=== PATIENT | female | born 1955 | race Caucasian/White ===

== ENCOUNTER 2019-07-29 13:29 | Inpatient (IN) | payer OTHER ==
[~2019-07-29] VITALS: Ht 152.4 cm; Wt 70.3 kg
[~2019-07-29 13:29] MED LIST: ATOR20TA65 PO; DOCU-159 PO; ENOX30DI10 SQ; HEP30MU30 CATHETER; HYDR-3672 PO; HYDR-4011 PO; PANT40TA4 PO
[2019-07-29] MEDS ORDERED: morphine 4 MG/ML VIAL IV ONE (14:00)
[2019-07-29] MEDS ORDERED: ONDANSETRON 4 MG INJ IV ONE (14:00)
[2019-07-29] MEDS ORDERED: morphine 4 MG/ML VIAL IV STA (15:14)
[2019-07-29] MEDS ORDERED: ONDANSETRON 4 MG INJ IV PRN (17:30)
[2019-07-29] MEDS ORDERED: ACETAMINOPHEN 325 MG TAB PO PRN (17:30)
[2019-07-29] MEDS ORDERED: NA POLYST SULFON 15 GM/60 ML BTL PO ONE (19:00)
[2019-07-29] MEDS: morphine 4 MG/ML VIAL IV PRN (19:16)
[2019-07-29] MEDS ORDERED: hydrALAzine 20 MG INJ IV PRN (19:30)
[2019-07-29 20:20] VITALS: BP 173/74; PULSE 71; RESP 19
[2019-07-29 21:05] VITALS: Ht 152.4 cm; Wt 70.3 kg
[2019-07-29 23:57] VITALS: BP 139/63; PULSE 69; RESP 18
[2019-07-30] VITALS (18 sets, daily range): BP systolic 138–208; BP diastolic 61–99; PULSE 69–80; RESP 16–20
[2019-07-30] MEDS: morphine 4 MG/ML VIAL IV PRN ×2 (05:12→10:08)
[2019-07-30] MEDS: ONDANSETRON 4 MG INJ IV PRN ×3 (05:12→21:53)
[2019-07-30] MEDS: DEXTROSE 5%-0.45% NACL 1,000 ML IV SCH ×2 (10:59→21:55)
[2019-07-30] MEDS ORDERED: SODIUM CHLORIDE 0.9% 1L BAG IV PRN (11:30)
[2019-07-30] MEDS ORDERED: POLYMYXIN/BACITRACIN 1L IRRIG ONE (14:23)
[2019-07-30] MEDS ORDERED: PROPOFOL 20 ML ONE (15:18)
[2019-07-30] MEDS ORDERED: FENTAnyl 50 MCG/ML VIAL ONE (15:18)
[2019-07-30] MEDS ORDERED: LIDOCAINE 100 MG SYRINGE ONE (15:18)
[2019-07-30] MEDS ORDERED: ONDANSETRON 4 MG INJ ONE (15:27)
[2019-07-30] MEDS ORDERED: ROPIVACAINE 0.5 % 30 ML VIAL ONE (15:39)
[2019-07-30] MEDS ORDERED: NEOSTIGMINE 3 MG/3 ML SYRINGE ONE (15:58)
[2019-07-30] MEDS ORDERED: CEFAZOLIN 1 GM INJ ONE (15:58)
[2019-07-30] MEDS ORDERED: GLYCOPYRROLATE 0.4 MG INJ ONE (15:58)
[2019-07-30] MEDS ORDERED: DIPHENHYDRAMINE 50 MG INJ IV PRN (16:30)
[2019-07-30] MEDS ORDERED: HYDROmorphONE 1 MG/5 ML IV SYRINGE IV PRN ×3 (16:30)
[2019-07-30] MEDS ORDERED: MEPERIDINE 25 MG INJ IV PRN (16:30)
[2019-07-30] MEDS ORDERED: LABETALOL HCL 20MG INJ IV PRN (16:30)
[2019-07-30] MEDS ORDERED: FENTAnyl 50 MCG/ML VIAL IV PRN ×3 (16:30)
[2019-07-30] MEDS ORDERED: OXYCODONE/ACETAMINOPHEN (5/325) TAB PO PRN ×2 (16:30)
[2019-07-30] MEDS ORDERED: ALBUTEROL 0.083% (NEB) 2.5 MG/3 ML AMP HHN PRN (16:30)
[2019-07-30] MEDS ORDERED: IPRATROPIUM (NEB) 0.5 MG/2.5 ML AMP HHN PRN (16:30)
[2019-07-30] MEDS ORDERED: ONDANSETRON 4 MG INJ IV PRN (16:30)
[2019-07-30] MEDS ORDERED: EPHEDrine 25 MG/5 ML SYG IV PRN (16:30)
[2019-07-30] MEDS ORDERED: hydrALAzine 20 MG INJ IV PRN (16:30)
[2019-07-30] MEDS ORDERED: SOD CHLORIDE 0.9% 1,000 ML IV SCH (17:03)
[2019-07-30] MEDS ORDERED: MAGNESIUM HYDROXIDE 30ML CUP PO PRN (17:30)
[2019-07-30] MEDS ORDERED: BISACODYL 10 MG SUPP PR PRN (17:30)
[2019-07-30] MEDS ORDERED: SENNA/DOCUSATE NA (8.6MG/50MG) TAB PO PRN (17:30)
[2019-07-30] MEDS ORDERED: CEFAZOLIN 2 GM/50 ML (PMX) 50 ML IVPB SCH (17:30)
[2019-07-30] MEDS ORDERED: NA PHOSPHATE/BIPHOS 133 ML ENEMA PR PRN (17:30)
[2019-07-30] MEDS ORDERED: oxyCODONE 5 MG TAB PO PRN (17:30)
[2019-07-30] MEDS ORDERED: DOCUSATE SODIUM 100 MG CAP PO ONE (17:30)
[2019-07-30] MEDS ORDERED: NACL 0.9% 3 ML SYG IV SCH (17:30)
[2019-07-30] MEDS ORDERED: NALOXONE (0.4 MG/ML) INJ IV PRN (17:30)
[2019-07-30] MEDS: ATORVASTATIN 20 MG TAB PO SCH (21:00)
[2019-07-30] MEDS: HYDROmorphONE 1 MG/ML SYG IV PRN (21:53)
[2019-07-31] VITALS (19 sets, daily range): BP systolic 77–153; BP diastolic 33–77; PULSE 66–88; RESP 18–19
[2019-07-31] MEDS: ALBUMIN HUMAN 25% 100 ML IV PRN ×2 (01:46→02:52)
[2019-07-31] MEDS: CEFAZOLIN 2 GM/50 ML (PMX) 50 ML IVPB SCH ×2 (04:07→15:23)
[2019-07-31] MEDS: HEPARIN 1000 UNITS/ML 10 ML INJ CATHETER SCH (04:43)
[2019-07-31] MEDS: PANTOPRAZOLE (EC) 40 MG TAB PO SCH (06:00)
[2019-07-31] MEDS: HYDROmorphONE 1 MG/ML SYG IV PRN ×2 (06:10→10:16)
[2019-07-31] MEDS: ONDANSETRON 4 MG INJ IV PRN ×2 (06:10→10:17)
[2019-07-31] MEDS ORDERED: ENOXAPARIN 40 MG/0.4 ML SYG SC SCH (09:00)
[2019-07-31] MEDS: DOCUSATE SODIUM 100 MG CAP PO SCH ×2 (09:30→20:52)
[2019-07-31] MEDS: DEXTROSE 5%-0.45% NACL 1,000 ML IV SCH (15:25)
[2019-07-31] MEDS: ATORVASTATIN 20 MG TAB PO SCH (20:52)
[2019-08-01] VITALS (22 sets, daily range): BP systolic 87–143; BP diastolic 40–74; PULSE 66–87; RESP 18–20
[2019-08-01] MEDS: PANTOPRAZOLE (EC) 40 MG TAB PO SCH (06:27)
[2019-08-01] MEDS: DOCUSATE SODIUM 100 MG CAP PO SCH ×2 (08:46→20:39)
[2019-08-01] MEDS: ALBUMIN HUMAN 25% 100 ML IV PRN (10:03)
[2019-08-01] MEDS ORDERED: FUROSEMIDE 20 MG INJ IV ONE (10:30)
[2019-08-01] MEDS: morphine 4 MG/ML VIAL IV PRN ×2 (10:47→15:45)
[2019-08-01] MEDS: HEPARIN 1000 UNITS/ML 10 ML INJ CATHETER SCH (11:03)
[2019-08-01] MEDS: SOD CHLORIDE 0.9% 250 ML IV* ONE ×2 (11:10→11:12)
[2019-08-01] MEDS ORDERED: EPOETIN ALFA-EPBX (ESRD) 3,000 UNIT/ML VIAL SC SCH (17:00)
[2019-08-01] MEDS ORDERED: ACETAMINOPHEN 500 MG TAB PO PRN (20:30)
[2019-08-01] MEDS: ATORVASTATIN 20 MG TAB PO SCH (20:39)
[2019-08-01] MEDS: ONDANSETRON 4 MG INJ IV PRN (21:04)
[2019-08-02] VITALS (9 sets, daily range): BP systolic 101–153; BP diastolic 55–82; PULSE 65–122; RESP 18
[2019-08-02] MEDS: morphine 4 MG/ML VIAL IV PRN ×2 (03:38→11:09)
[2019-08-02] MEDS: PANTOPRAZOLE (EC) 40 MG TAB PO SCH (05:22)
[2019-08-02] MEDS: ONDANSETRON 4 MG INJ IV PRN (05:23)
[2019-08-02] MEDS: DOCUSATE SODIUM 100 MG CAP PO SCH ×2 (09:00→09:14)
[2019-08-02] MEDS ORDERED: METOCLOPRAMIDE 10 MG INJ IV PRN (09:30)
[2019-08-02] MEDS ORDERED: SOD CHLORIDE 0.9% 250 ML IV ONE (14:00)
== END 2019-08-02 18:39 | DRG 480 ==
LOC: E/R 13:29 → 6WM 17:13 → CANRESERV 17:38 → EDBEDREQSVC 17:57
PROVIDERS: ADMIT Internal Medicine; ATTEND Internal Medicine
PROC: 0QS606Z Reposition Right Upper Femur with Intramedullary Internal Fixation Device, Open Approach (ICD-10-PCS; principal; 2019-07-30 15:00)
PROC: 5A1D70Z Performance of Urinary Filtration, Intermittent, Less than 6 Hours Per Day (ICD-10-PCS; 2019-07-31)
PROC: 30233N1 Transfusion of Nonautologous Red Blood Cells into Peripheral Vein, Percutaneous Approach (ICD-10-PCS; 2019-08-01)
DX: S72.21XA Displaced subtrochanteric fracture of right femur, initial encounter for closed fracture (principal); N18.6 End stage renal disease; I12.0 Hypertensive chronic kidney disease with stage 5 chronic kidney disease or end stage renal disease; I42.9 Cardiomyopathy, unspecified; D62 Acute posthemorrhagic anemia; Z99.2 Dependence on renal dialysis; E87.5 Hyperkalemia; D63.1 Anemia in chronic kidney disease; E78.5 Hyperlipidemia, unspecified; W01.0XXA Fall on same level from slipping, tripping and stumbling without subsequent striking against object, initial encounter
CPT/HCPCS: 36415; 36430; 71045; 72170; 73500; 73510; 73530; 73550; 80048; 82550; 82553; 84484; 85025; 85610; 85730; 86850; 86900; 86901; 86920; 87340; 90935; 93005; 93306; 96374; 96375; 96376; 97162; 97530; C1713; J0360; J0690; J1170; J1644; J1940; J2001; J2270; J2405; J2710; J2765; J2795; J3010; J7030; J7040; J7042; P9016; P9047; Q5105